=== PATIENT | male | born 1940 | race Caucasian/White ===

== ENCOUNTER → 2020-06-28 | Outpatient (CLI) | payer OTHER ==
[2020-06-28 11:15] LABS: CREATININE 1.2 mg/dL (0.7-1.3)
== END ==
LOC: LAB 10:17
PROVIDERS: ATTEND Surgery Vascular Surgery
DX: I65.23 Occlusion and stenosis of bilateral carotid arteries (principal); J84.10 Pulmonary fibrosis, unspecified; G31.89 Other specified degenerative diseases of nervous system